=== PATIENT | female | born 1985 | race American Indian/Alaskan Native ===

== ENCOUNTER 2017-10-07 10:13 | Outpatient (CLI) | payer OTHER ==
--- NOTE | 2017-10-07 14:08 | XRay Report ---
RIGHT KNEE: History: Knee pain. The bony architecture is intact without evidence of fracture or dislocation. No significant soft tissue abnormality is seen. IMPRESSION: Normal right knee.
--- NOTE | 2017-10-07 14:09 | XRay Report ---
AP AND LATERAL LUMBOSACRAL SPINE: History: Back pain. The vertebral bodies are well mineralized and normal in alignment and vertebral height with well preserved interspace distances. The visualized portions of the posterior elements are normal. IMPRESSION: Normal study.
== END 2017-10-07 10:14 | disposition home or self-care (01) ==
LOC: XRAY 10:13
PROVIDERS: ATTEND Internal Medicine
DX: M54.5 Low back pain (principal); M25.561 Pain in right knee; M72.2 Plantar fascial fibromatosis; G56.03 Carpal tunnel syndrome, bilateral upper limbs
CPT/HCPCS: 72100

== ENCOUNTER 2018-03-20 23:50 | Emergency (ER) | payer SELFPAY ==
[2018-03-21 00:57] VITALS: BP 129/62
== END 2018-03-21 04:35 | disposition left against medical advice (07) ==
LOC: ED 23:50
DX: G56.01 Carpal tunnel syndrome, right upper limb (principal); M79.641 Pain in right hand; Z88.0 Allergy status to penicillin; Z53.21 Procedure and treatment not carried out due to patient leaving prior to being seen by health care provider

== ENCOUNTER 2022-01-08 20:54 | Emergency (ER) | payer OTHER ==
[2022-01-08 20:59] VITALS: BP 141/80
== END 2022-01-08 22:20 | disposition left against medical advice (07) ==
LOC: ED 20:54
DX: Z04.1 Encounter for examination and observation following transport accident (principal); Z53.21 Procedure and treatment not carried out due to patient leaving prior to being seen by health care provider; V87.7XXA Person injured in collision between other specified motor vehicles (traffic), initial encounter; Y93.89 Activity, other specified; Y92.488 Other paved roadways as the place of occurrence of the external cause; Y99.8 Other external cause status